=== PATIENT | male | born 1965 | race Caucasian/White ===

== ENCOUNTER 2016-12-06 07:39 | Day surgery (SDC) | payer MEDICARE, OTHER ==
[~2016-12-06] VITALS: Ht 175.3 cm; Wt 95.0 kg
[~2016-12-06 07:39] MED LIST: AMLO-512 PO; BENA10TA3 PO; SODIUM CHLORIDE 0.9% 1,000 ML IV ONE; SUBUTEX PO
[2016-12-06] MEDS ORDERED: SODIUM CHLORIDE 0.9% 1,000 ML IV ONE (08:30)
[2016-12-06] MEDS ORDERED: SODIUM BICARBONATE 50 MEQ/50 ML VIAL ONE (10:34)
[2016-12-06] MEDS ORDERED: LIDOCAINE HCL/PF 1% 30 ML VIAL ONE (10:34)
[2016-12-06 10:43] VITALS: BP 170/85
[2016-12-06] MEDS ORDERED: BUPIVACAINE HCL/PF 0.75% 10 ML VIAL ONE (10:46)
[2016-12-06] MEDS ORDERED: LIDOCAINE HCL/PF 2% 5 ML VIAL ONE (10:46)
[2016-12-06] MEDS ORDERED: TRIAMCINOLONE ACETONIDE 40 MG/ML VIAL ONE (10:47)
[2016-12-06] MEDS ORDERED: FentaNYL CITRATE-PF 100 MCG/2 ML VIAL ONE ×2 (10:48→11:23)
[2016-12-06] MEDS ORDERED: MIDAZOLAM HCL 2 MG/2 ML VIAL ONE ×2 (10:48→11:23)
[2016-12-06] MEDS ORDERED: MIDAZOLAM HCL 2 MG/2 ML VIAL IVP ONE ×2 (11:00→11:30)
[2016-12-06] MEDS ORDERED: LIDOCAINE HCL/PF 2% 5 ML VIAL IARTIC ONE (11:00)
[2016-12-06] MEDS ORDERED: LIDOCAINE 1% 30 ML/SOD BICARB 8.4% 4 ML SQ ONE (11:00)
[2016-12-06] MEDS ORDERED: BUPIVACAINE HCL/PF 0.75% 10 ML VIAL IARTIC ONE (11:00)
[2016-12-06] MEDS ORDERED: FentaNYL CITRATE-PF 100 MCG/2 ML VIAL IVP ONE ×2 (11:00→11:30)
[2016-12-06] MEDS ORDERED: TRIAMCINOLONE ACETONIDE 40 MG/ML VIAL IARTIC ONE (11:00)
== END 2016-12-06 13:10 | disposition home or self-care (01) ==
LOC: SDS 07:39
PROVIDERS: ATTEND Specialist
DX: M46.96 Unspecified inflammatory spondylopathy, lumbar region (principal)
CPT/HCPCS: 64635; 64636; J2250; J3010; J3301; J3490 ×4; J7030

== ENCOUNTER 2017-01-15 05:52 | Day surgery (SDC) | payer MEDICARE, OTHER ==
[~2017-01-15] VITALS: Ht 175.3 cm; Wt 93.6 kg
[~2017-01-15 05:52] MED LIST changes: -SUBUTEX PO
[2017-01-15] MEDS ORDERED: SODIUM CHLORIDE 0.9% 1,000 ML IV ONE (06:00)
[2017-01-15] MEDS ORDERED: FentaNYL CITRATE-PF 100 MCG/2 ML VIAL ONE ×3 (07:30→08:37)
[2017-01-15] MEDS ORDERED: MIDAZOLAM HCL 2 MG/2 ML VIAL ONE ×2 (07:31→07:54)
[2017-01-15] MEDS ORDERED: LIDOCAINE HCL/PF 1% 30 ML VIAL ONE (07:31)
[2017-01-15] MEDS ORDERED: IOHEXOL 300 MG/ML 50 ML VIAL ONE (07:31)
[2017-01-15] MEDS ORDERED: SODIUM BICARBONATE 50 MEQ/50 ML VIAL ONE (07:32)
[2017-01-15] MEDS ORDERED: IOHEXOL 300 MG/ML 10 ML VIAL ONE (07:35)
[2017-01-15 07:38] VITALS: BP 144/98
[2017-01-15] MEDS ORDERED: LIDOCAINE HCL/PF 2% 5 ML VIAL ONE (07:39)
[2017-01-15] MEDS ORDERED: TRIAMCINOLONE ACETONIDE 40 MG/ML VIAL ONE (07:39)
[2017-01-15] MEDS ORDERED: BUPIVACAINE HCL/PF 0.75% 10 ML VIAL ONE (07:39)
[2017-01-15] MEDS ORDERED: MIDAZOLAM HCL 2 MG/2 ML VIAL IVP ONE ×3 (07:45→08:36)
[2017-01-15] MEDS ORDERED: FentaNYL CITRATE-PF 100 MCG/2 ML VIAL IVP ONE ×3 (07:45→08:36)
[2017-01-15] MEDS ORDERED: LIDOCAINE 1% 30 ML/SOD BICARB 8.4% 4 ML SQ ONE (07:54)
[2017-01-15] MEDS ORDERED: LIDOCAINE HCL/PF 2% 5 ML VIAL IARTIC ONE (08:10)
[2017-01-15] MEDS ORDERED: BUPIVACAINE HCL/PF 0.75% 10 ML VIAL IARTIC ONE (08:10)
[2017-01-15] MEDS ORDERED: TRIAMCINOLONE ACETONIDE 40 MG/ML VIAL IARTIC ONE (08:10)
[2017-01-15 09:03] VITALS: BP 113/93
[2017-01-15] MEDS ORDERED: HYDROmorphone 2 MG/ML SYRINGE IM ONE (09:30)
[2017-01-15] MEDS ORDERED: HYDROmorphone 2 MG/ML SYRINGE ONE ×2 (09:47→09:53)
== END 2017-01-15 11:05 | disposition home or self-care (01) ==
LOC: SDS 05:52
PROVIDERS: ATTEND Specialist
DX: M47.814 Spondylosis without myelopathy or radiculopathy, thoracic region (principal); I10 Essential (primary) hypertension; G89.29 Other chronic pain; M54.9 Dorsalgia, unspecified; Z90.49 Acquired absence of other specified parts of digestive tract; Z88.8 Allergy status to other drugs, medicaments and biological substances; Z98.890 Other specified postprocedural states; Z87.891 Personal history of nicotine dependence
CPT/HCPCS: 64633; 64634; J1170; J2250; J3010; J3301; J3490 ×4; J7030; Q9967

== ENCOUNTER 2017-01-29 09:38 | Day surgery (SDC) | payer MEDICARE, OTHER ==
[~2017-01-29] VITALS: Ht 175.3 cm; Wt 86.5 kg
[~2017-01-29 09:38] MED LIST changes: -SODIUM CHLORIDE 0.9% 1,000 ML IV ONE
[2017-01-29] MEDS ORDERED: SODIUM CHLORIDE 0.9% 1,000 ML IV ONE ×2 (10:00→10:30)
[2017-01-29] MEDS ORDERED: MIDAZOLAM HCL 2 MG/2 ML VIAL ONE ×2 (11:45→12:29)
[2017-01-29] MEDS ORDERED: FentaNYL CITRATE-PF 100 MCG/2 ML VIAL ONE ×2 (11:45→12:28)
[2017-01-29] MEDS ORDERED: LIDOCAINE HCL/PF 2% 5 ML VIAL ONE (11:46)
[2017-01-29] MEDS ORDERED: LIDOCAINE HCL/PF 1% 30 ML VIAL ONE (11:46)
[2017-01-29] MEDS ORDERED: SODIUM BICARBONATE 50 MEQ/50 ML VIAL ONE (11:46)
[2017-01-29] MEDS ORDERED: TRIAMCINOLONE ACETONIDE 40 MG/ML VIAL ONE (11:46)
[2017-01-29 11:58] VITALS: BP 150/93
[2017-01-29] MEDS ORDERED: BUPIVACAINE HCL/PF 0.75% 10 ML VIAL ONE (12:15)
[2017-01-29] MEDS ORDERED: FentaNYL CITRATE-PF 100 MCG/2 ML VIAL IVP ONE ×2 (12:19→12:35)
[2017-01-29] MEDS ORDERED: MIDAZOLAM HCL 2 MG/2 ML VIAL IVP ONE ×2 (12:19→12:35)
[2017-01-29] MEDS ORDERED: LIDOCAINE 1% 30 ML/SOD BICARB 8.4% 4 ML SQ ONE (12:31)
[2017-01-29] MEDS ORDERED: BUPIVACAINE HCL/PF 0.75% 10 ML VIAL IARTIC ONE (12:45)
[2017-01-29] MEDS ORDERED: TRIAMCINOLONE ACETONIDE 40 MG/ML VIAL IARTIC ONE ×2 (12:45→13:14)
[2017-01-29] MEDS ORDERED: LIDOCAINE HCL/PF 2% 5 ML VIAL IARTIC ONE (12:45)
[2017-01-29 13:18] VITALS: BP 98/76
[2017-01-29] MEDS ORDERED: HYDROmorphone 2 MG/ML SYRINGE IVP ONE (13:45)
[2017-01-29] MEDS ORDERED: HYDROmorphone 2 MG/ML SYRINGE ONE (13:55)
== END 2017-01-29 15:00 | disposition home or self-care (01) ==
LOC: SDS 09:38
PROVIDERS: ATTEND Specialist
DX: M47.812 Spondylosis without myelopathy or radiculopathy, cervical region (principal); G89.29 Other chronic pain; M54.5 Low back pain; M54.2 Cervicalgia; I10 Essential (primary) hypertension; M79.1 Myalgia; M25.561 Pain in right knee; Z88.8 Allergy status to other drugs, medicaments and biological substances; Z90.49 Acquired absence of other specified parts of digestive tract; Z87.891 Personal history of nicotine dependence
CPT/HCPCS: 64633; 64634; J1170; J2250; J3010; J3301; J3490 ×4; J7030

== ENCOUNTER 2017-03-26 05:40 | Day surgery (SDC) | payer MEDICARE, OTHER ==
[~2017-03-26] VITALS: Ht 172.7 cm; Wt 92.7 kg
[2017-03-26] MEDS ORDERED: SODIUM CHLORIDE 0.9% 1,000 ML IV ONE ×2 (06:00→06:11)
[2017-03-26] MEDS ORDERED: BUPIVACAINE HCL/PF 0.75% 10 ML VIAL ONE (07:08)
[2017-03-26] MEDS ORDERED: IOHEXOL 300 MG/ML 10 ML VIAL ONE (07:09)
[2017-03-26] MEDS ORDERED: TRIAMCINOLONE ACETONIDE 40 MG/ML VIAL ONE (07:09)
[2017-03-26] MEDS ORDERED: LIDOCAINE HCL/PF 2% 5 ML VIAL ONE (07:10)
[2017-03-26] MEDS ORDERED: LIDOCAINE HCL/PF 1% 30 ML VIAL ONE (07:10)
[2017-03-26] MEDS ORDERED: FentaNYL CITRATE-PF 100 MCG/2 ML VIAL ONE ×2 (07:26→07:53)
[2017-03-26] MEDS ORDERED: MIDAZOLAM HCL 2 MG/2 ML VIAL ONE ×2 (07:26→07:53)
[2017-03-26 07:38] VITALS: BP 124/97
[2017-03-26] MEDS ORDERED: FentaNYL CITRATE-PF 100 MCG/2 ML VIAL IVP ONE ×2 (07:44→08:00)
[2017-03-26] MEDS ORDERED: MIDAZOLAM HCL 2 MG/2 ML VIAL IVP ONE ×2 (07:44→08:01)
[2017-03-26] MEDS ORDERED: LIDOCAINE HCL 1% 20 ML VIAL INJ ONE (07:51)
[2017-03-26] MEDS ORDERED: LIDOCAINE HCL/PF 2% 5 ML VIAL IARTIC ONE (08:51)
[2017-03-26] MEDS ORDERED: BUPIVACAINE HCL/PF 0.75% 10 ML VIAL IARTIC ONE (08:51)
[2017-03-26] MEDS ORDERED: TRIAMCINOLONE ACETONIDE 40 MG/ML VIAL IARTIC ONE (08:51)
[2017-03-26 09:08] VITALS: BP 126/83
[2017-03-26] MEDS ORDERED: HYDROmorphone 2 MG/ML SYRINGE IVP ONE (09:30)
== END 2017-03-26 10:55 | disposition home or self-care (01) ==
LOC: SDS 05:40
PROVIDERS: ATTEND Specialist
DX: M47.812 Spondylosis without myelopathy or radiculopathy, cervical region (principal); I10 Essential (primary) hypertension; G89.29 Other chronic pain; M54.9 Dorsalgia, unspecified; Z88.8 Allergy status to other drugs, medicaments and biological substances; Z90.49 Acquired absence of other specified parts of digestive tract; Z98.890 Other specified postprocedural states; Z87.891 Personal history of nicotine dependence
CPT/HCPCS: 64633; 64634; J1170; J2250; J3010; J3301; J3490 ×3; J7030; Q9967

== ENCOUNTER 2017-06-10 06:24 | Day surgery (SDC) | payer MEDICARE, OTHER ==
[~2017-06-10] VITALS: Ht 175.3 cm; Wt 88.6 kg
[~2017-06-10 06:24] MED LIST changes: +SODIUM CHLORIDE 0.9% 1,000 ML IV ONE
[2017-06-10] MEDS ORDERED: MORP15T PO (07:10)
[2017-06-10] MEDS ORDERED: BUPIVACAINE HCL/PF 0.75% 10 ML VIAL ONE (07:29)
[2017-06-10] MEDS ORDERED: TRIAMCINOLONE ACETONIDE 40 MG/ML VIAL ONE (07:29)
[2017-06-10] MEDS ORDERED: FentaNYL CITRATE-PF 100 MCG/2 ML VIAL ONE (07:29)
[2017-06-10] MEDS ORDERED: MIDAZOLAM HCL 2 MG/2 ML VIAL ONE ×2 (07:29→08:16)
[2017-06-10] MEDS ORDERED: LIDOCAINE HCL/PF 2% 5 ML VIAL ONE ×2 (07:30→08:59)
[2017-06-10] MEDS ORDERED: LIDOCAINE HCL/PF 1% 30 ML VIAL ONE (07:30)
[2017-06-10 07:41] VITALS: BP 158/95
[2017-06-10] MEDS ORDERED: FentaNYL CITRATE-PF 100 MCG/2 ML VIAL IVP ONE ×2 (08:00→08:30)
[2017-06-10] MEDS ORDERED: MIDAZOLAM HCL 2 MG/2 ML VIAL IVP ONE ×2 (08:00→08:30)
[2017-06-10] MEDS ORDERED: TRIAMCINOLONE ACETONIDE 40 MG/ML VIAL IARTIC ONE (08:00)
[2017-06-10] MEDS ORDERED: BUPIVACAINE HCL/PF 0.75% 10 ML VIAL IARTIC ONE (08:00)
[2017-06-10] MEDS ORDERED: LIDOCAINE HCL/PF 2% 5 ML VIAL IARTIC ONE (08:00)
[2017-06-10] MEDS ORDERED: LIDOCAINE HCL/PF 1% 30 ML VIAL INJ ONE (08:15)
[2017-06-10] MEDS ORDERED: ALBUTEROL SULFATE 2.5 MG/0.5 ML NEB SOLUTION NEB ONE (08:22)
[2017-06-10] MEDS ORDERED: 0.9% SODIUM CHLORIDE 5 ML NEB SOLUTION NEB ONE (08:23)
[2017-06-10 09:10] VITALS: BP 117/85
[2017-06-10] MEDS ORDERED: HYDROmorphone 2 MG/ML SYRINGE ONE (09:42)
[2017-06-10] MEDS ORDERED: HYDROmorphone 2 MG/ML SYRINGE IVP ONE (09:45)
== END 2017-06-10 11:00 | disposition home or self-care (01) ==
LOC: SDS 06:24
PROVIDERS: ATTEND Specialist
DX: M47.814 Spondylosis without myelopathy or radiculopathy, thoracic region (principal); I10 Essential (primary) hypertension; M54.30 Sciatica, unspecified side; Z88.8 Allergy status to other drugs, medicaments and biological substances; Z98.890 Other specified postprocedural states
CPT/HCPCS: 64633; 64634; J1170; J2250; J3010; J3301; J3490 ×3; J7030

== ENCOUNTER 2017-08-12 05:31 | Day surgery (SDC) | payer MEDICARE, OTHER ==
[~2017-08-12] VITALS: Ht 175.3 cm; Wt 93.6 kg
[~2017-08-12 05:31] MED LIST changes: +MORP15T PO; -SODIUM CHLORIDE 0.9% 1,000 ML IV ONE
[2017-08-12] MEDS ORDERED: SODIUM CHLORIDE 0.9% 1,000 ML IV ONE ×2 (05:41→07:00)
[2017-08-12] MEDS ORDERED: BUPIVACAINE HCL/PF 0.75% 10 ML VIAL ONE (07:33)
[2017-08-12] MEDS ORDERED: FentaNYL CITRATE-PF 100 MCG/2 ML VIAL ONE (07:33)
[2017-08-12] MEDS ORDERED: MIDAZOLAM HCL 2 MG/2 ML VIAL ONE (07:33)
[2017-08-12] MEDS ORDERED: LIDOCAINE HCL/PF 2% 5 ML VIAL ONE (07:34)
[2017-08-12] MEDS ORDERED: SODIUM BICARBONATE 50 MEQ/50 ML VIAL ONE (07:34)
[2017-08-12] MEDS ORDERED: LIDOCAINE HCL/PF 1% 30 ML VIAL ONE (07:34)
[2017-08-12] MEDS ORDERED: TRIAMCINOLONE ACETONIDE 40 MG/ML VIAL ONE (07:34)
[2017-08-12 07:51] VITALS: BP 131/89
[2017-08-12] MEDS ORDERED: LIDOCAINE HCL/PF 2% 5 ML VIAL IARTIC ONE (08:15)
[2017-08-12] MEDS ORDERED: TRIAMCINOLONE ACETONIDE 40 MG/ML VIAL IARTIC ONE (08:15)
[2017-08-12] MEDS ORDERED: MIDAZOLAM HCL 2 MG/2 ML VIAL IVP ONE ×2 (08:15)
[2017-08-12] MEDS ORDERED: FentaNYL CITRATE-PF 100 MCG/2 ML VIAL IVP ONE ×2 (08:15)
[2017-08-12] MEDS ORDERED: BUPIVACAINE HCL/PF 0.75% 10 ML VIAL IARTIC ONE (08:15)
[2017-08-12] MEDS ORDERED: LIDOCAINE 1% 30 ML/SOD BICARB 8.4% 4 ML SQ ONE (08:15)
[2017-08-12 09:12] VITALS: BP 107/74
[2017-08-12] MEDS ORDERED: HYDROmorphone 2 MG/ML SYRINGE ONE (09:41)
[2017-08-12] MEDS ORDERED: HYDROmorphone 2 MG/ML SYRINGE IVP ONE (09:45)
== END 2017-08-12 10:30 | disposition home or self-care (01) ==
LOC: SDS 05:31
PROVIDERS: ATTEND Specialist
DX: M47.812 Spondylosis without myelopathy or radiculopathy, cervical region (principal); G89.29 Other chronic pain; I10 Essential (primary) hypertension; Z88.6 Allergy status to analgesic agent; Z87.891 Personal history of nicotine dependence; Z98.890 Other specified postprocedural states; Z90.89 Acquired absence of other organs; Z79.899 Other long term (current) drug therapy
CPT/HCPCS: 64633; 64634; 99152; 99153; J1170; J2250; J3010; J3301; J3490 ×4; J7030

== ENCOUNTER 2017-08-20 06:28 | Day surgery (SDC) | payer MEDICARE, OTHER ==
[~2017-08-20] VITALS: Ht 175.3 cm; Wt 97.3 kg
[~2017-08-20 06:28] MED LIST changes: +SODIUM CHLORIDE 0.9% 1,000 ML IV ONE
[2017-08-20] MEDS ORDERED: BUPIVACAINE HCL/PF 0.75% 10 ML VIAL ONE (07:17)
[2017-08-20] MEDS ORDERED: TRIAMCINOLONE ACETONIDE 40 MG/ML VIAL ONE (07:17)
[2017-08-20] MEDS ORDERED: IOHEXOL 300 MG/ML 10 ML VIAL ONE (07:18)
[2017-08-20] MEDS ORDERED: LIDOCAINE HCL/PF 1% 30 ML VIAL ONE (07:19)
[2017-08-20] MEDS ORDERED: SODIUM BICARBONATE 50 MEQ/50 ML VIAL ONE (07:19)
[2017-08-20] MEDS ORDERED: LIDOCAINE HCL/PF 2% 5 ML VIAL ONE (07:19)
[2017-08-20] MEDS ORDERED: FentaNYL CITRATE-PF 100 MCG/2 ML VIAL ONE ×2 (07:20→08:00)
[2017-08-20] MEDS ORDERED: MIDAZOLAM HCL 2 MG/2 ML VIAL ONE ×2 (07:21→08:00)
[2017-08-20 07:45] VITALS: BP 141/73
[2017-08-20] MEDS ORDERED: FentaNYL CITRATE-PF 100 MCG/2 ML VIAL IVP ONE ×2 (07:53→08:28)
[2017-08-20] MEDS ORDERED: MIDAZOLAM HCL 2 MG/2 ML VIAL IVP ONE ×2 (07:53→08:28)
[2017-08-20] MEDS ORDERED: LIDOCAINE 1% 30 ML/SOD BICARB 8.4% 4 ML SQ ONE (08:01)
[2017-08-20] MEDS ORDERED: BUPIVACAINE HCL/PF 0.75% 10 ML VIAL IARTIC ONE (08:15)
[2017-08-20] MEDS ORDERED: TRIAMCINOLONE ACETONIDE 40 MG/ML VIAL IARTIC ONE (08:15)
[2017-08-20] MEDS ORDERED: LIDOCAINE HCL/PF 2% 5 ML VIAL IARTIC ONE (08:15)
[2017-08-20 08:48] VITALS: BP 122/69
[2017-08-20] MEDS ORDERED: HYDROmorphone 2 MG/ML SYRINGE ONE (09:09)
[2017-08-20] MEDS ORDERED: HYDROmorphone 2 MG/ML SYRINGE IVP ONE (09:15)
== END 2017-08-20 10:15 | disposition home or self-care (01) ==
LOC: SDS 06:28
PROVIDERS: ATTEND Specialist
DX: M47.812 Spondylosis without myelopathy or radiculopathy, cervical region (principal); G89.29 Other chronic pain; I10 Essential (primary) hypertension; Z98.890 Other specified postprocedural states; Z87.891 Personal history of nicotine dependence; Z90.89 Acquired absence of other organs; Z88.6 Allergy status to analgesic agent; Z79.899 Other long term (current) drug therapy
CPT/HCPCS: 64633; 64634; 99152; 99153; J1170; J2250; J3010; J3301; J3490 ×4; J7030; Q9967

== ENCOUNTER 2017-11-12 05:30 | Day surgery (SDC) | payer MEDICARE, OTHER ==
[~2017-11-12] VITALS: Ht 175.3 cm; Wt 98.5 kg
[~2017-11-12 05:30] MED LIST changes: -SODIUM CHLORIDE 0.9% 1,000 ML IV ONE
[2017-11-12] MEDS ORDERED: SODIUM CHLORIDE 0.9% 1,000 ML IV ONE ×2 (05:39→06:00)
[2017-11-12] MEDS ORDERED: TRIAMCINOLONE ACETONIDE 40 MG/ML VIAL ONE (07:50)
[2017-11-12] MEDS ORDERED: BUPIVACAINE HCL/PF 0.75% 10 ML VIAL ONE (07:50)
[2017-11-12] MEDS ORDERED: LIDOCAINE HCL/PF 2% 5 ML VIAL ONE (07:50)
[2017-11-12] MEDS ORDERED: LIDOCAINE HCL/PF 1% 30 ML VIAL ONE (07:50)
[2017-11-12] MEDS ORDERED: SODIUM BICARBONATE 50 MEQ/50 ML VIAL ONE (07:50)
[2017-11-12] MEDS ORDERED: FentaNYL CITRATE-PF 100 MCG/2 ML VIAL ONE ×2 (07:58→09:26)
[2017-11-12] MEDS ORDERED: MIDAZOLAM HCL 2 MG/2 ML VIAL ONE (07:58)
[2017-11-12 08:00] VITALS: BP 147/97
[2017-11-12] MEDS ORDERED: LIDOCAINE HCL/PF 2% 5 ML VIAL IARTIC ONE (08:15)
[2017-11-12] MEDS ORDERED: BUPIVACAINE HCL/PF 0.75% 10 ML VIAL IARTIC ONE (08:15)
[2017-11-12] MEDS ORDERED: LIDOCAINE 1% 30 ML/SOD BICARB 8.4% 4 ML SQ ONE (08:15)
[2017-11-12] MEDS ORDERED: TRIAMCINOLONE ACETONIDE 40 MG/ML VIAL IARTIC ONE (08:15)
[2017-11-12] MEDS ORDERED: MIDAZOLAM HCL 2 MG/2 ML VIAL IVP ONE ×4 (08:15→09:30)
[2017-11-12] MEDS ORDERED: FentaNYL CITRATE-PF 100 MCG/2 ML VIAL IVP ONE ×4 (08:15→09:30)
[2017-11-12 09:46] VITALS: BP 118/94
[2017-11-12] MEDS ORDERED: HYDROmorphone 2 MG/ML SYRINGE IVP ONE (10:10)
[2017-11-12] MEDS ORDERED: HYDROmorphone 2 MG/ML SYRINGE ONE (10:11)
== END 2017-11-12 11:05 | disposition home or self-care (01) ==
LOC: SDS 05:30
PROVIDERS: ATTEND Specialist
DX: M47.816 Spondylosis without myelopathy or radiculopathy, lumbar region (principal); G89.29 Other chronic pain; I10 Essential (primary) hypertension; Z88.6 Allergy status to analgesic agent; Z79.891 Long term (current) use of opiate analgesic; Z79.899 Other long term (current) drug therapy; Z90.89 Acquired absence of other organs; Z98.890 Other specified postprocedural states; Z87.891 Personal history of nicotine dependence
CPT/HCPCS: 64635; 64636 ×2; J1170; J2250; J3010; J3301; J3490 ×4; J7030

== ENCOUNTER 2018-02-25 07:01 | Day surgery (SDC) | payer MEDICARE, OTHER ==
[~2018-02-25] VITALS: Ht 175.3 cm; Wt 98.6 kg
[~2018-02-25 07:01] MED LIST changes: -AMLO-512 PO; -BENA10TA3 PO; +BENA1TAB18 PO; +METO50 PO; +MORP30TA11 PO; +PRAV20TA4 PO; +SODIUM CHLORIDE 0.9% 1,000 ML IV ONE
[2018-02-25 07:37] VITALS: BP 150/85
[2018-02-25] MEDS ORDERED: MIDAZOLAM HCL 2 MG/2 ML VIAL ONE ×3 (08:51→09:50)
[2018-02-25] MEDS ORDERED: FentaNYL CITRATE-PF 100 MCG/2 ML VIAL ONE ×3 (08:51→09:50)
[2018-02-25] MEDS ORDERED: TRIAMCINOLONE ACETONIDE 40 MG/ML VIAL ONE (08:51)
[2018-02-25] MEDS ORDERED: LIDOCAINE HCL/PF 1% 30 ML VIAL ONE (08:52)
[2018-02-25] MEDS ORDERED: SODIUM BICARBONATE 50 MEQ/50 ML VIAL ONE (08:52)
[2018-02-25] MEDS ORDERED: LIDOCAINE HCL/PF 2% 5 ML VIAL ONE (08:52)
[2018-02-25] MEDS ORDERED: IOHEXOL 300 MG/ML 10 ML VIAL ONE (08:53)
[2018-02-25 09:15] VITALS: BP 150/91
[2018-02-25] MEDS ORDERED: MIDAZOLAM HCL 2 MG/2 ML VIAL IVP ONE ×2 (09:26→09:40)
[2018-02-25] MEDS ORDERED: FentaNYL CITRATE-PF 100 MCG/2 ML VIAL IVP ONE ×2 (09:26→09:40)
[2018-02-25] MEDS ORDERED: LIDOCAINE 1% 30 ML/SOD BICARB 8.4% 4 ML SQ ONE (09:41)
[2018-02-25] MEDS ORDERED: IOHEXOL 300 MG/ML 10 ML VIAL IARTIC ONE (09:47)
[2018-02-25] MEDS ORDERED: LIDOCAINE HCL/PF 2% 5 ML VIAL IARTIC ONE (09:50)
[2018-02-25] MEDS ORDERED: TRIAMCINOLONE ACETONIDE 40 MG/ML VIAL IARTIC ONE (09:50)
[2018-02-25 09:58] VITALS: BP 117/62
[2018-02-25] MEDS ORDERED: HYDROmorphone 2 MG/ML SYRINGE IVP ONE (10:30)
[2018-02-25] MEDS ORDERED: HYDROmorphone 2 MG/ML SYRINGE ONE (10:47)
== END 2018-02-25 12:20 | disposition home or self-care (01) ==
LOC: SDS 07:01
PROVIDERS: ATTEND Specialist
DX: M47.812 Spondylosis without myelopathy or radiculopathy, cervical region (principal); M47.816 Spondylosis without myelopathy or radiculopathy, lumbar region; G89.29 Other chronic pain; I10 Essential (primary) hypertension; Z88.6 Allergy status to analgesic agent; Z87.891 Personal history of nicotine dependence; Z90.49 Acquired absence of other specified parts of digestive tract; Z90.89 Acquired absence of other organs; Z79.891 Long term (current) use of opiate analgesic; Z98.890 Other specified postprocedural states; Z79.899 Other long term (current) drug therapy
CPT/HCPCS: 64490; 64491; 64492; 99152; 99153; J1170; J2250; J3010; J3301; J3490 ×3; J7030; Q9967

== ENCOUNTER 2018-04-08 05:55 | Day surgery (SDC) | payer MEDICARE, OTHER ==
[~2018-04-08] VITALS: Ht 175.3 cm; Wt 91.4 kg
[~2018-04-08 05:55] MED LIST changes: -SODIUM CHLORIDE 0.9% 1,000 ML IV ONE
[2018-04-08] MEDS ORDERED: SODIUM CHLORIDE 0.9% 1,000 ML IV ONE ×2 (06:00→06:06)
[2018-04-08] MEDS ORDERED: TRIAMCINOLONE ACETONIDE 40 MG/ML VIAL ONE (07:52)
[2018-04-08] MEDS ORDERED: LIDOCAINE HCL/PF 2% 5 ML VIAL ONE (07:52)
[2018-04-08] MEDS ORDERED: BUPIVACAINE HCL/PF 0.75% 10 ML VIAL ONE (07:52)
[2018-04-08] MEDS ORDERED: LIDOCAINE HCL/PF 1% 30 ML VIAL ONE (07:52)
[2018-04-08] MEDS ORDERED: SODIUM BICARBONATE 50 MEQ/50 ML VIAL ONE (07:52)
[2018-04-08 08:28] VITALS: BP 154/103
[2018-04-08] MEDS ORDERED: FentaNYL CITRATE-PF 100 MCG/2 ML VIAL ONE ×2 (08:33→09:25)
[2018-04-08] MEDS ORDERED: MIDAZOLAM HCL 2 MG/2 ML VIAL ONE ×2 (08:33→09:26)
[2018-04-08] MEDS ORDERED: LIDOCAINE HCL/PF 2% 5 ML VIAL IARTIC ONE (09:15)
[2018-04-08] MEDS ORDERED: TRIAMCINOLONE ACETONIDE 40 MG/ML VIAL IARTIC ONE (09:15)
[2018-04-08] MEDS ORDERED: LIDOCAINE 1% 30 ML/SOD BICARB 8.4% 4 ML SQ ONE (09:15)
[2018-04-08] MEDS ORDERED: BUPIVACAINE HCL/PF 0.75% 10 ML VIAL IARTIC ONE (09:15)
[2018-04-08] MEDS ORDERED: MIDAZOLAM HCL 2 MG/2 ML VIAL IVP ONE ×3 (09:15→10:15)
[2018-04-08] MEDS ORDERED: FentaNYL CITRATE-PF 100 MCG/2 ML VIAL IVP ONE ×3 (09:15→10:15)
[2018-04-08 10:21] VITALS: BP 133/92
[2018-04-08] MEDS ORDERED: HYDROmorphone 2 MG/ML SYRINGE IM ONE (10:30)
[2018-04-08] MEDS ORDERED: HYDROmorphone 2 MG/ML SYRINGE IVP ONE (10:30)
[2018-04-08] MEDS ORDERED: HYDROmorphone 2 MG/ML SYRINGE ONE (11:23)
== END 2018-04-08 11:50 | disposition home or self-care (01) ==
LOC: SDS 05:55
PROVIDERS: ATTEND Specialist
DX: M47.812 Spondylosis without myelopathy or radiculopathy, cervical region (principal); G89.29 Other chronic pain; I10 Essential (primary) hypertension; Z79.891 Long term (current) use of opiate analgesic; Z90.49 Acquired absence of other specified parts of digestive tract; Z87.891 Personal history of nicotine dependence; Z90.89 Acquired absence of other organs; Z88.6 Allergy status to analgesic agent; Z98.890 Other specified postprocedural states; Z79.899 Other long term (current) drug therapy; Z88.8 Allergy status to other drugs, medicaments and biological substances
CPT/HCPCS: 64633; 64634; 99152; 99153; J1170; J2250; J3010; J3301; J3490 ×4; J7030

== ENCOUNTER 2018-04-10 06:03 | Day surgery (SDC) | payer MEDICARE, OTHER ==
[~2018-04-10] VITALS: Ht 175.3 cm; Wt 96.4 kg
[~2018-04-10 06:03] MED LIST changes: +SODIUM CHLORIDE 0.9% 1,000 ML IV ONE
[2018-04-10] MEDS ORDERED: FentaNYL CITRATE-PF 100 MCG/2 ML VIAL ONE ×3 (07:09→08:43)
[2018-04-10] MEDS ORDERED: MIDAZOLAM HCL 2 MG/2 ML VIAL ONE ×3 (07:09→08:44)
[2018-04-10] MEDS ORDERED: TRIAMCINOLONE ACETONIDE 40 MG/ML VIAL ONE (07:10)
[2018-04-10] MEDS ORDERED: BUPIVACAINE HCL/PF 0.75% 10 ML VIAL ONE (07:10)
[2018-04-10] MEDS ORDERED: LIDOCAINE HCL/PF 1% 30 ML VIAL ONE (07:11)
[2018-04-10] MEDS ORDERED: SODIUM BICARBONATE 50 MEQ/50 ML VIAL ONE (07:11)
[2018-04-10] MEDS ORDERED: IOHEXOL 300 MG/ML 10 ML VIAL ONE (07:11)
[2018-04-10] MEDS ORDERED: LIDOCAINE HCL/PF 2% 5 ML VIAL ONE (07:12)
[2018-04-10 07:44] VITALS: BP 160/108
[2018-04-10] MEDS ORDERED: MIDAZOLAM HCL 2 MG/2 ML VIAL IVP ONE ×3 (08:02→08:35)
[2018-04-10] MEDS ORDERED: LIDOCAINE 1% 30 ML/SOD BICARB 8.4% 4 ML SQ ONE (08:02)
[2018-04-10] MEDS ORDERED: FentaNYL CITRATE-PF 100 MCG/2 ML VIAL IVP ONE ×3 (08:02→08:35)
[2018-04-10] MEDS ORDERED: LIDOCAINE HCL/PF 2% 5 ML VIAL IARTIC ONE (08:15)
[2018-04-10] MEDS ORDERED: TRIAMCINOLONE ACETONIDE 40 MG/ML VIAL IARTIC ONE (08:15)
[2018-04-10] MEDS ORDERED: BUPIVACAINE HCL/PF 0.75% 10 ML VIAL IARTIC ONE (08:15)
[2018-04-10 08:47] VITALS: BP 142/102
[2018-04-10] MEDS ORDERED: HYDROmorphone 2 MG/ML SYRINGE ONE (09:17)
[2018-04-10] MEDS ORDERED: HYDROmorphone 2 MG/ML SYRINGE IVP ONE (09:30)
== END 2018-04-10 10:35 | disposition home or self-care (01) ==
LOC: SDS 06:03
PROVIDERS: ATTEND Specialist
DX: M47.812 Spondylosis without myelopathy or radiculopathy, cervical region (principal); G89.29 Other chronic pain; I10 Essential (primary) hypertension; Z79.891 Long term (current) use of opiate analgesic; Z87.891 Personal history of nicotine dependence; Z90.49 Acquired absence of other specified parts of digestive tract; Z88.6 Allergy status to analgesic agent; Z98.890 Other specified postprocedural states; Z79.899 Other long term (current) drug therapy; Z88.8 Allergy status to other drugs, medicaments and biological substances
CPT/HCPCS: 64633; 64634; 99152; 99153; J1170; J2250; J3010; J3301; J3490 ×4; J7030; Q9967